=== PATIENT | male | born 1965 | race African-American/Black ===

== ENCOUNTER 2017-05-14 10:00 | Inpatient (IN) | payer MEDICARE, OTHER ==
--- NOTE | ~2017-05-14 | PN ---
Unit #: [id number] #: [id number] Patient: ALEXX CARTER [id number] [facility] [address] [place] [address] [id number] I MR#: [id number] NAME: ALEXX CARTER. ROOM: P205 Age: 51 Sex: M Admission Date: 05/14/2017 : 1965 Attending Physician: Jose Parada M.D. Admitting Physician: Jose Parada M.D. Primary Care Physician: Primary Care Physician Henna DUARTE NOTES DATE OF SERVICE: 05/21/2017 SUBJECTIVE Mr. Carter is a 51-year-old white male, who was seen today and chart was reviewed and case was discussed with the staff. He has been anxious, withdrawn, and rather seclusive to himself. Meanwhile, he has been cooperative with treatment recommendations and has been taking the medications and tolerating them fairly well with no reported side effects. MENTAL STATUS EXAMINATION Middle-aged white male, who was casually dressed with fair personal hygiene, appears to be in no acute distress or discomfort. He was awake and alert with intact orientation. His mood was anxious with a congruent affect. Denies any suicidal or homicidal ideations. His insight and judgment remained slightly impaired. TREATMENT PLAN 1. We will continue on his current medications and treatment protocol. We will monitor his response to medications and make further adjustments as needed. 2. We will continue to follow up. Dictated by... Sarwat Centeno/holly TD: 05/21/2017 15:50 JOB #: [id number] ELE PROGRESS NOTES Page 1 of 1 X Mary Jane Suarez MD X PROGRESS NOTE
--- NOTE | ~2017-05-14 | HP ---
Unit #: [id number] #: [id number] Patient: ALEXX CARTER [id number] [facility] [address] [place] [address] [id number] MR#: [id number] NAME: ALEXX CARTER. ROOM: [facility] Age: 51 Sex: M Admission Date: 05/14/2017 : 1965 Attending Physician: Jose Parada M.D. Admitting Physician: Jose Parada M.D. Primary Care Physician: Primary Care Physician No HISTORY AND PHYSICAL HISTORY OF PRESENT ILLNESS Alexx is a 51 year old admitted to [address] [place] [address] because of his polysubstance abuse which include crack cocaine and alcohol. PAST MEDICAL HISTORY 1. History of alcohol abuse. 2. History of illicit substance abuse to include crack cocaine. 3. Seizure disorder. The patient admits he is noncompliant with medications. PAST SURGICAL HISTORY Nothing reported. ALLERGIES No known drug allergies. SOCIAL HISTORY Smokes one pack per day. Drinks a 12 pack of beer on a daily basis. Admits to using marijuana and cocaine on a regular basis. FAMILY HISTORY Medically noncontributory. REVIEW OF SYSTEMS CONSTITUTIONAL: No fever or chills. HEENT: Denies any sore throat, ear pain or runny nose. CARDIOVASCULAR: Denies chest pain, irregular heart rhythm or palpitations. CHEST: Denies shortness of breath or cough. No hemoptysis. GASTROINTESTINAL: Denies nausea, vomiting, diarrhea or chronic constipation. ENDOCRINE: Denies history of increased thirst or urination. No recent significant weight loss or gain. GENITOURINARY: Denies dysuria, frequency, or hematuria. SKIN: Denies any rashes. HEMATOLOGIC: Denies history of increased bleeding or bruising. MUSCULOSKELETAL: Denies any hot, swollen joints. No generalized muscle pain. NEUROLOGIC: Denies problems with vision or speech. No frequent, severe headaches. No numbness, tingling or weakness in any extremities. Denies loss of bladder or bowel control. CURRENT MEDICATIONS Unit #: [id number] #: [id number] Patient: ALEXX CARTER 1. Detox protocol 2. Cogentin 1 mg b.i.d. 3. Zyprexa 10 mg b.i.d. PHYSICAL EXAMINATION GENERAL: Alert, well-nourished, in no apparent distress. VITAL SIGNS: Blood pressure 152/92, heart rate 80, respirations 16, temperature 98.6. WEIGHT: 65 pounds. HEIGHT: 5'8". SKIN: Warm and dry without rash or lesion. HEENT: Normocephalic. TMs not viewed. Oral and nasal passages clear. Conjunctivae clear. Pupils equal, round and reactive to light and accommodation. Extraocular movements intact. NECK: Supple without lymphadenopathy or thyromegaly. HEART: Regular rate and rhythm without murmur. LUNGS: Clear. ABDOMEN: Soft, nontender. : Not done. EXTREMITIES: No evidence of cyanosis, clubbing or edema. Moves all extremities without focal deficit. NEUROLOGICAL: Grossly within normal limits. Cranial Nerves: II: Visual harris are intact. III, IV AND : Extraocular movements are intact. Pupils are equal, round and reactive to light. V: Facial sensation is grossly normal. VII: Facial movements and expression are normal. VIII: Auditory acuity grossly intact. IX, X: Uvula is midline. Phonation is normal. XI: Patient shrugs shoulders and turns head normally. XII: Tongue protrudes in the midline. Sensory and Motor Function: Sensory and motor sensation is grossly normal. Motor: moves all extremities well. Coordination: Gait is normal. Deep Tendon Reflexes: Intact. IMPRESSION Psychiatric admission RECOMMENDATIONS PSYCHIATRIC: Per psychiatrist. MEDICAL: I see no contraindications to participating in facility's activities. MEDICAL PROGNOSIS Good. MEDICAL CONDITION Stable. Dictated by... Danisha Gavin P.A.-C. for Sarwat Rajan/mallory Unit #: [id number] #: [id number] Patient: ALEXX CARTER TD: 05/14/2017 21:08 JOB #: [id number] HISTORY AND PHYSICAL Page 1 of 1 X Danisha Gavin HISTORY AND PHYSICAL
--- NOTE | ~2017-05-14 | PN ---
Unit #: [id number] #: [id number] Patient: ALEXX CARTER [id number] [facility] [address] [place] [address] [id number] I MR#: [id number] NAME: ALEXX CARTER. ROOM: P205 Age: 51 Sex: M Admission Date: 05/14/2017 : 1965 Attending Physician: Jose Parada M.D. Admitting Physician: Jose Parada M.D. Primary Care Physician: Primary Care Physician Henna DUARTE NOTES DATE 05/19/2017 DISCUSSION Mr. Carter is a 51-year-old white male who was seen today in cross coverage for Dr. Parada and chart was reviewed and case was discussed with the staff. He has been anxious, withdrawn though has not shown any agitation, irritability and has been cooperative with treatment recommendations. MENTAL STATUS EXAMINATION Middle-aged white male who was casually dressed with fair personal hygiene and appears to be in no acute distress or discomfort. He was awake and alert with intact orientation. His mood was anxious with congruent affect. He denies any suicidal or homicidal ideation. His insight and judgement remains slightly impaired. TREATMENT PLAN Will continue on his current medications and treatment protocol. Will monitor his response and make further adjustments as needed. Dictated by... Sarwat Centeno/pedro TD: 05/19/2017 22:15 JOB #: [id number] [facility] PROGRESS NOTES Page 1 of 1 X Mary Jane Suarez MD X PROGRESS NOTE
--- NOTE | ~2017-05-14 | PN ---
Unit #: [id number] #: [id number] Patient: ALEXX CARTER [id number] [facility] [address] [place] [address] [id number] MR#: [id number] NAME: ALEXX CARTER. ROOM: P205 Age: 51 Sex: M Admission Date: 05/14/2017 : 1965 Attending Physician: Jose Parada M.D. Admitting Physician: Jose Parada M.D. Primary Care Physician: Primary Care Physician Henna MARLOW PROGRESS NOTES DATE 05/18/2017 DISCUSSION Mr. Carter is a 51-year-old white male who was seen today and chart was reviewed and case was discussed with the staff. He has been anxious, withdrawn and rather seclusive to himself. Meanwhile, he has been cooperative with treatment recommendations and has been taking medications and tolerating them fairly well. MENTAL STATUS EXAMINATION Middle-aged white male who was casually dressed with fair personal hygiene and appears to be in no acute distress or discomfort. He was awake and alert with intact orientation. His mood was anxious with congruent affect. He denies any suicidal or homicidal ideations. His insight and judgement remains slightly impaired. TREATMENT PLAN 1. Will continue on his current medications and treatment protocol. Will monitor his response to the medications and make further adjustments as needed. 2. Will continue to follow up. Dictated by... Mary Jane Suarez M.D. LUCÍA/pedro TD: 05/18/2017 19:36 JOB #: [id number] Unit #: [id number] #: [id number] Patient: ALEXX CARTER ELE PROGRESS NOTES Page 1 of 1 X Mary Jane Suarez MD X PROGRESS NOTE
--- NOTE | ~2017-05-14 | PN ---
Unit #: [id number] #: [id number] Patient: ALEXX CARTER [id number] [facility] [address] [place] [address] [id number] MR#: [id number] NAME: ALEXX CARTER. ROOM: P205 Age: 51 Sex: M Admission Date: 05/14/2017 : 1965 Attending Physician: Jose Parada M.D. Admitting Physician: Jose Parada M.D. Primary Care Physician: Primary Care Physician Henna PEACE PROGRESS NOTES DATE 05/17/2017 DISCUSSION Alexx Carter is a 51-year-old male seen on 05/17/2017. Patient reports making progress. Still sad, dysphoric, flat affect, guarded. Patient denied any suicidal or homicidal ideation but passive SI. Complete review of system unremarkable. MENTAL STATUS EXAMINATION General appearance, patient dressed casually. Attention span, concentration fair. Oriented in place and person. Mood and affect labile. Speech monotone. Thought process concrete. Patient denied any thoughts of harming self or others but passive SI. Recent and remote memory poor. Insight and judgement poor. DIAGNOSES 1. Schizophrenia, chronic paranoid type. 2. Cocaine use disorder, severe. 3. Mood disorder NOS. 4. Alcohol use disorder, severe. ASSESSMENT/PLAN Advised to continue with current medication and therapeutic protocol. If needed, consider further adjustment of medication. Dictated by... Sarwat Badillo/epdro TD: 05/17/2017 21:19 JOB #: [id number] Unit #: [id number] #: [id number] Patient: ALEXX CARTER PEACE PROGRESS NOTES Page 1 of 1 X Jose Parada MD PROGRESS NOTE
--- NOTE | ~2017-05-14 | PN ---
Unit #: [id number] #: [id number] Patient: ALEXX CARTER [id number] [facility] [address] [place] [address] [id number] I MR#: [id number] NAME: ALEXX CARTER. ROOM: P205 Age: 51 Sex: M Admission Date: 05/14/2017 : 1965 Attending Physician: Jose Parada M.D. Admitting Physician: Jose Parada M.D. Primary Care Physician: Primary Care Physician Henna MARLOW PROGRESS NOTES DATE 05/20/2017 DISCUSSION Mr. Carter is a 51-year-old, white male who was seen today and chart was reviewed and case was discussed with the staff. He has been anxious, withdrawn and rather seclusive to himself. Meanwhile, he has been taking medications and tolerating them fairly well with no reported side effects. MENTAL STATUS EXAM Middle-aged white male who was casually dressed with fair personal hygiene, appears to be in no acute distress or discomfort. He was awake and alert on interaction with intact orientation. His mood was anxious with congruent affect. He denies any suicidal or homicidal ideation. He denies any insight and judgement. TREATMENT PLAN 1. We will continue him on his current treatment protocol. We will monitor his response and make further adjustments as needed. 2. We will continue to follow up. Dictated by... Sarwat Centeno/mallory TD: 05/22/2017 03:55 JOB #: [id number] Unit #: [id number] #: [id number] Patient: ALEXX CARTER PROGRESS NOTES Page 1 of 1 X Mary Jane Suarez MD X PROGRESS NOTE
--- NOTE | ~2017-05-14 | PN ---
Unit #: [id number] #: [id number] Patient: ALEXX CARTER [id number] [facility] [address] [place] [address] [id number] I MR#: [id number] NAME: ALEXX CARTER. ROOM: P205 Age: 51 Sex: M Admission Date: 05/14/2017 : 1965 Attending Physician: Jose Parada M.D. Admitting Physician: Jose Parada M.D. Primary Care Physician: Primary Care Physician Henna DUARTE NOTES DATE 05/23/2017 DISCUSSION Mr. Carter is a 51-year-old, white male who was seen today and chart was reviewed and case was discussed with the staff. He has been anxious and was seclusive to himself. Meanwhile, he has been cooperative with treatment recommendations. He has been taking medications and tolerating them fairly well. MENTAL STATUS EXAM Middle-aged white male who was casually dressed with fair personal hygiene, appears to be in no acute distress or discomfort. He was awake and alert on interaction with intact orientation. His mood was anxious with congruent affect. He denies any suicidal or homicidal ideation. His insight and judgement remains slightly impaired. TREATMENT PLAN 1. We will continue him on his current medications and treatment protocol. We will monitor his response to the medication and make further adjustments as needed. 2. We will continue to follow up. Dictated by... Sarwat Centeno/mallory TD: 05/23/2017 21:57 JOB #: [id number] Unit #: [id number] #: [id number] Patient: ALEXX CARTER ELE PROGRESS NOTES Page 1 of 1 X Mary Jane Suarez MD PROGRESS NOTE
--- NOTE | ~2017-05-14 | PN ---
Unit #: [id number] #: [id number] Patient: ALEXX CARTER [id number] [facility] [address] [place] [address] [id number] MR#: [id number] NAME: ALEXX CARTER. ROOM: P205 Age: 51 Sex: M Admission Date: 05/14/2017 : 1965 Attending Physician: Jose Parada M.D. Admitting Physician: Jose Parada M.D. Primary Care Physician: Primary Care Physician Henna DUARTE NOTES DATE 05/18/2017 DISCUSSION Mr. Carter is a 51-year-old white male who was seen today in cross coverage for Dr. Parada and chart was reviewed and case was discussed with the staff. He has been anxious, withdrawn and has been reporting persistent depressive symptoms and has not shown any agitation or aggression. Meanwhile, he has been taking medications and tolerating them fairly well. He has been going to therapy groups and has been participating and has been showing some improvement in his overall functioning. He denies any suicidal or homicidal ideation and does not appear to be and as such will maintain him on his current medications and treatment protocol. Will monitor his response and make further adjustments as needed. Dictated by... Sarwat Centeno/pedro TD: 05/18/2017 16:53 JOB #: [id number] ELE DUARTE NOTES Page 1 of 1 X Mary Jane Suarez MD X PROGRESS NOTE
--- NOTE | ~2017-05-14 | DS ---
Unit #: [id number] #: [id number] Patient: [facility] [id number] [facility] [address] [place] [address] [id number] I MR#: [id number] NAME: ALEXX CARTER. ROOM: [facility] Age: 51 Sex: M Admission Date: 05/14/2017 : 1965 Discharge Date: 05/25/2017 Attending Physician: Jose Parada M.D. Primary Care Physician: Primary Care Physician No DISCHARGE SUMMARY IDENTIFYING DATA Mr. Carter is a 51-year-old male, who was self-referred to the hospital. DISCHARGE DIAGNOSES Psychiatric: Chronic paranoid schizophrenia by history; cocaine abuse, moderate; and alcohol abuse, moderate. Medical: Epilepsy. Stressors: Moderate psychosocial stressors. HISTORY OF PRESENT ILLNESS Please see initial psychiatric evaluation for details. PAST PSYCHIATRIC HISTORY Please see initial psychiatric evaluation for details. PAST MEDICAL HISTORY Please see initial psychiatric evaluation for details. HOSPITAL COURSE The patient was admitted to the adult psychiatric unit at [facility] and was oriented to the hospital environment. Routine p.r.n. medications were initiated, and he was admitted under the care of Dr. Parada, who started him on a combination of Celexa and Abilify, and once Dr. Parada left for vacation, the patient was transferred to my case and medications were maintained and he was closely monitored. He was taking the medications regularly and was tolerating them fairly well and was able to show a decent and therapeutic response with improvement in depression and anxiety and as such, it was decided that he will be discharged home and will continue treatment on an outpatient basis. DISCHARGE MEDICATIONS Celexa 20 mg a day for depression and Abilify 10 mg b.i.d. for psychosis. DISCHARGE CONDITION Stable. PROGNOSIS Fair. Dictated by... Mary Jane Suarez M.D. Unit #: [id number] #: [id number] Patient: ALEXX CARTER IAA/modl TD: 05/27/2017 18:39 JOB #: [id number] DISCHARGE SUMMARY Page 1 of 1 X Mary Jane Suarez MD X DISCHARGE SUMMARY
--- NOTE | ~2017-05-14 | CO ---
Unit #: [id number] #: [id number] Patient: ALEXX CARTER [id number] [facility] [address] [place] [address] [id number] MR#: [id number] NAME: ALEXX CARTER. ROOM: [facility] Age: 51 Sex: M Admission Date: 05/14/2017 : 1965 Attending Physician: Jose Parada M.D. Primary Care Physician: Primary Care Physician No Consultation Date: 05/17/2017 CONSULTATION REPORT SUBJECTIVE Alexx is a 51-year-old with history of alcohol abuse. He is detoxing. We have been asked to review his blood pressures during detox. OBJECTIVE VITAL SIGNS: Blood pressure is 140/78, 130/80, 134/92, 140/86; heart rate 87, 89, 95, 105. ASSESSMENT Minimal elevation in his blood pressure during alcohol detox. PLAN Continue detox. No plans to start any medication for high blood pressure. Dictated by... Danisha Gavin P.A.-C. for Sarwat Rajan/holly TD: 05/24/2017 01:48 JOB #: [id number] CONSULTATION REPORT Page 1 of 1 X Danisha Gavin CONSULTATION REPORT
--- NOTE | ~2017-05-14 | PN ---
Unit #: [id number] #: [id number] Patient: ALEXX CARTER [id number] [facility] [address] [place] [address] [id number] MR#: [id number] NAME: ALEXX CARTER. ROOM: P205 Age: 51 Sex: M Admission Date: 05/14/2017 : 1965 Attending Physician: Jose Parada M.D. Admitting Physician: Jose Parada M.D. Primary Care Physician: Primary Care Physician Henna MALROW PROGRESS NOTES DATE 05/16/2017 DISCUSSION Mr. Alexx Carter is a 51-year-old male seen on 05/16/2017. The patient interviewed, chart reviewed. Obtained information from nursing staff. The patient was compliant and cooperative. Mood sad, dysphoric, The patient was able to maintain safe behavior but still sad depressed, anxious, withdrawn. Complete review of systems unremarkable. MENTAL STATUS EXAMINATION General appearance, the patient dressed casually. Attention span and concentration fair. Oriented to place and person. Mood and affect sad depressed. Speech monotone. Thought process concrete. The patient having passive SI denied any thoughts withdrawn, isolative, guarded. Recent and remote memory poor. Insight and judgement poor. DIAGNOSES Mood disorder NOS Major depressive disorder recurrent ASSESSMENT/PLAN Advise to continue with current medication and therapeutic protocol. If needed consider further adjustment of medication. Dictated by... Sarwat Badillo/mallory TD: 05/17/2017 01:19 JOB #: [id number] Unit #: [id number] #: [id number] Patient: ALEXX CARTER ELE PROGRESS NOTES Page 1 of 1 X Jose Parada MD PROGRESS NOTE
--- NOTE | ~2017-05-14 | PA ---
Unit #: [id number] #: [id number] Patient: ALEXX CARTER [id number] [facility] [address] [place] [address] [id number] MR#: [id number] NAME: ALEXX CARTER. ROOM: [facility] Age: 51 Sex: M Admission Date: 05/14/2017 : 1965 Date of Assessment: Attending Physician: Jose Parada M.D. Admitting Physician: Jose Parada M.D. Primary Care Physician: Primary Care Physician No PSYCHIATRIC ASSESSMENT INFORMANTS The patient's reliability, fair; chart reliability, good. CHIEF COMPLAINT Depression. HISTORY OF PRESENT ILLNESS Mr. Alexx Carter is a 51-year-old male, seen on with the above-mentioned complaint. The patient presented with depression, not taking his medication. History of diagnosis of schizophrenia. Previous treatment at [facility], currently noncompliant with medication, the first admission in 1982. The patient carries a diagnosis of schizophrenia, chronic paranoid type. The patient has been off from his medication from the last 2 months. Reported auditory hallucination, command hallucination to kill himself. The patient is paranoid and believes that others are trying to hurt him. The patient was alert and oriented, reported feeling hopeless and worthless. The patient smokes 1 g of crack, drinks 12 beers. The patient denied any withdrawal symptoms. Needing inpatient admission at this time for psychiatric stabilization. PAST PSYCHIATRIC HISTORY Remarkable for history of previous treatment at [facility] in 1999 through 1982. Outpatient services through [facility], noncompliant. FAMILY HISTORY AND SOCIAL HISTORY The patient has a poor support system. Family psychiatric illness unavailable at this time. Social history, no known history of any abuse. No legal charges. MEDICAL HISTORY Remarkable for epilepsy. MEDICATIONS None. ALLERGIES No known drug allergies. SUBSTANCE ABUSE HISTORY The patient reported use of alcohol, age of onset 10; tobacco, age of onset 10; marijuana, age of onset 14; crack cocaine, age of onset 25. Unit #: [id number] #: [id number] Patient: ALEXX CARTER Long period of sobriety 12 hours, last period of sobriety today. The patient reported history of blackout. No history of any HIV, hepatitis, withdrawal symptom, or IV drug use. REVIEW OF SYSTEMS HEENT: Eyes, clear. Ears, nose, mouth, and throat; clear. CARDIOVASCULAR: Unremarkable. RESPIRATORY: Unremarkable. GI: Unremarkable. : Unremarkable. SKIN: Unremarkable. LYMPH NODE: Unremarkable. NEUROLOGIC: Unremarkable. ENDOCRINE: Unremarkable. HEMATOLOGIC: Unremarkable. ALLERGIC/IMMUNOLOGIC: Unremarkable. MUSCULOSKELETAL: Muscle strength and tone, no atrophy or abnormal movement. Gait normal. MENTAL STATUS EXAMINATION CONSTITUTIONAL: Measurement of vital signs; temperature 98.5, pulse 95, respirations 18, blood pressure 141/86; height 5 feet 8 inches, weight 165 pounds. GENERAL APPEARANCE: The patient dressed casually. The patient did not show any facial deformity. MUSCULOSKELETAL: Please see above. PSYCHIATRIC EXAMINATION Description of speech; regular rate, normal volume, normal articulation, coherent, and spontaneous. Description of thought process, goal directed. Description of association, intact. Description of abnormal psychotic thinking; guarded, paranoid, mood lability, suicidal ideation, command hallucination. Description of the patient's judgment; concerning everyday activity, poor. Social situation, poor. Concerning psychiatric condition, poor. Complete mental status examination; oriented in time, place, and person. Recent and remote memory, poor. Attention span and concentration, fair. Language, able to name object and repeat phrases. Fund of knowledge, aware of current event and passive vocabulary intact. Mood and affect, sad and dysphoric. Insight and judgment, fair to poor. ASSETS AND LIABILITIES Assets; the patient articulate, able to take care of his ADL. Liability; history of depression, psychosis, schizophrenia. ADMITTING DIAGNOSES Psychiatric: Schizophrenia, chronic paranoid type, F20.0; cocaine use disorder, severe, F14.20; alcohol use disorder, severe, F10.20. Secondary diagnosis: Deferred. Medical diagnosis: Epilepsy. Stressors: Psychosocial stressors. PSYCHIATRIC PLAN AND TREATMENT GOAL 1. Advised to admit the patient on the inpatient unit. Provide safe, Unit #: [id number] #: [id number] Patient: ALEXX CARTER supportive, and structured environment. 2. Ordered labs; CBC, CMP, UA, and UDS. 3. Precaution for aggression, self-harm, and psychosis. 4. Recommending at this time to start the patient on Abilify, starting with 10 mg b.i.d. and Cogentin 1 mg b.i.d. and consider SSRI such as Celexa with a plan to consider changing to injectable long-acting preparation. Treatment goal to attain euthymic mood, gain insight into his problem, and learn coping skills. DISCHARGE PLAN Plan to stabilize the patient and consider followup in outpatient program. ESTIMATED LENGTH OF STAY 2 weeks. Dictated by... Sarwat Badillo/holly TD: 05/16/2017 02:25 JOB #: [id number] PSYCHIATRIC ASSESSMENT Page 1 of 1 X Jose Parada MD X PSYCHIATRIC ASSESSMENT
[2017-05-15 09:30] LABS: BASOPHIL# 0.1 X10e3 (0-0.3); BASOPHIL% 0.8 % (0-2.5); EOSINOPHIL# 0.3 X10e3 (0-0.7); EOSINOPHIL% 3.4 % (0.0-7.0); HEMOGLOBIN 14.1 gm/dL (13.0-16.0); LYMPHOCYTE# 1.9 X10e3 (1.0-3.5); MEAN CELL VOLUME 90.5 FL (83-96); MEAN CORPUSCULAR HEMOGLOBIN 29.8 PG (28-34); MEAN CORPUSCULAR HGB CONC 32.9 g/dL (30-36); MEAN PLATELET VOLUME 7.9 FL (6.5-11.5); MONOCYTE# 0.5 X10e3 (0-1.0); NEUTROPHIL% 64.8 % (40-75); PLATELET COUNT 276 X10e3 (140-420); RED BLOOD COUNT 4.75 X10e (3.90-5.60); RED CELL DISTRIBUTION WIDTH 13.6 % (11.0-15.5); WHITE BLOOD COUNT 7.8 X10e3 (4.0-10.5)
[2017-05-15 09:37] LABS: DIFF IND NO
[2017-05-15 09:50] LABS: ALBUMIN SERUM 3.9 g/dL (3.5-5.0); ALKALINE PHOSPHATASE 60 U/L (32-92); ALT (SGPT) 28 U/L (10-40); AST (SGOT) 24 U/L (10-42); BLOOD UREA NITROGEN 8 mg/dL (9-23); CALCIUM SERUM 9.7 mg/dL (8.4-10.2); CARBON DIOXIDE 29 mmol/L (22-31); CHLORIDE 105 mmol/L (100-111); GLOM FILT RATE Estimated 99.2 mL/min (>60); GLUCOSE FASTING 118 mg/dL (70-110); POTASSIUM 4.3 mmol/L (3.5-5.1); PROTEIN TOTAL SERUM 7.5 g/dL (6.0-8.3); SODIUM 140 mmol/L (135-145)
[2017-05-15 09:52] LABS: BILIRUBIN,TOTAL <0.1 mg/dL (0.2-2.0)
[2017-05-15 12:48] LABS: URINE APPEARANCE CLEAR; URINE BILIRUBIN NEG (NEG); URINE BLOOD NEG (NEG); URINE COLOR DK YELLOW; URINE GLUCOSE NEG (NEG); URINE KETONE NEG (NEG); URINE LEUKOCYTE ESTERASE NEG (NEG); URINE NITRATE NEG (NEG); URINE PH 5.5 (5-8); URINE PROTEIN NEG (NEG); URINE SPECIFIC GRAVITY 1.015 (1.003-1.035); URINE UROBILINOGEN 0.2 MG/DL (NEG)
[2017-05-15 13:03] LABS: AMPHETAMINE NEG (NEG); BARBITURATES NEG (NEG); BENZODIAZEPINES POS (NEG); COCAINE NEG (NEG); MARIJUANA NEG (NEG); OPIATES NEG (NEG); TRICYCLIC ANTIDEPRESSANTS NEG (NEG); U METHADONE NEG (NEG)
== END 2017-05-25 12:30 | disposition home or self-care (01) | DRG 885 ==
LOC: P2S 13:32
PROVIDERS: Psychiatry & Neurology Psychiatry
PROC: HZ2ZZZZ Detoxification Services for Substance Abuse Treatment (ICD-10-PCS; principal; 2017-05-14)
DX: F20.0 Paranoid schizophrenia (principal); F14.20 Cocaine dependence, uncomplicated; F10.20 Alcohol dependence, uncomplicated; G40.909 Epilepsy, unspecified, not intractable, without status epilepticus; F17.210 Nicotine dependence, cigarettes, uncomplicated; F33.8 Other recurrent depressive disorders
CPT/HCPCS: 80053; 80307; 81003; 85025; 86592